=== PATIENT | male | born 1960 | race Caucasian/White ===

== ENCOUNTER 2018-03-05 17:14 | Observation (INO) ==
[2018-03-05] MEDS ORDERED: Sod Chloride 0.9% Inj 1,000 ML IV.SIG ONE (17:44)
--- NOTE | 2018-03-05 18:18 | XR ---
EXAM DATE: 03/05/2018 6:09 PM EDT AGE/SEX: 57 years / Male INDICATIONS: Cough CLINICAL DATA: This is the patient's initial encounter. Patient reports that signs and symptoms have been present for 2 days and indicates a pain score of 0/10. MEDICAL/SURGICAL HISTORY: Hypertension. None. COMPARISON: No prior exams available for comparison. FINDINGS: PA and lateral views of the chest demonstrate the lungs to be symmetrically aerated without evidence of mass, infiltrate or effusion. The cardiomediastinal contours are unremarkable. Osseous structures are intact. CONCLUSION: Negative examination. Electronically signed by: Inocencio Madden MD 03/05/2018 6:17 PM EDT
[2018-03-05 18:29] LABS: Baso % (Auto) 0.1 % (0.0-2.0); Eos # (Auto) 0.1 th/mm3 (0.0-0.4); Eos % (Auto) 0.9 % (0.0-4.0); Hematocrit 45.4 % (39.0-51.0); Hemoglobin 15.3 gm/dL (13.0-17.0); Lymph # (Auto) 1.2 th/mm3 (1.0-4.8); Lymph % (Auto) 10.4 % (9.0-44.0); Mean Corpuscular HGB Conc 33.7 % (32.0-36.0); Mean Corpuscular Hemoglobin 30.4 pg (27.0-34.0); Mean Corpuscular Volume 90.5 fL (80.0-100.0); Mono # (Auto) 0.9 th/mm3 (0.0-0.9); Mono % (Auto) 7.8 % (0.0-8.0); Neut # (Auto) 9.5 th/mm3 (1.8-7.7); Neut % (Auto) 80.8 % (16.0-70.0); Platelet Count 298 th/mm3 (150-450); Red Blood Count 5.02 mil/mm3 (4.50-5.90); Red Cell Distribution Width 13.8 % (11.6-17.2); White Blood Count 11.8 th/mm3 (4.0-11.0)
[2018-03-05 18:51] LABS: INR 1.1 Ratio; Prothrombin Time 11.1 sec (9.8-11.6)
[2018-03-05 18:54] LABS: D-Dimer 0.34 mg/L FEU (0.00-0.50)
[2018-03-05 19:15] LABS: Alanine Aminotransferase 74 U/L (12-78)
[2018-03-05 19:19] LABS: Alkaline Phosphatase 86 U/L (45-117); Total Protein 7.7 g/dL (6.4-8.2)
[2018-03-05 19:31] LABS: Albumin 3.9 g/dL (3.4-5.0); Anion Gap 11 meq/L (5-15); Aspartate Aminotransferase 43 U/L (15-37); Blood Urea Nitrogen 18 mg/dL (7-18); Calcium 9.2 mg/dL (8.5-10.1); Carbon Dioxide 21.8 meq/L (21.0-32.0); Chloride 105 meq/L (98-107); Glomerular Filtration Rate 55 mL/min (>89); Glucose,Random 116 mg/dL (74-106); Potassium 4.3 meq/L (3.5-5.1); Sodium 138 meq/L (136-145)
--- NOTE | 2018-03-05 20:29 | ED ---
HPI General Chief Complaint: Syncope Stated Complaint: Evac/Medical Time Seen by Provider: 03/05/18 17:44 Source: patient Mode of arrival: EMS Limitations: no limitations History of Present Illness HPI narrative: 57-year-old male came to the emergency room with history of syncopal episode. He was brought in by EMS. Patient says that he was not feeling good today as well as last night. He had one episode of diarrhea this morning. He had eaten only one cup of yogurt and after that had been out and about with his fiance in the heat. They picked up something heavy from a pottery place and he unloaded it at home. They had gone to the restaurant to eat something and patient had eaten half of the sandwich when he had to go to the bathroom and had another episode of diarrhea. When he came back he felt extremely weak and passed out. Patient was sitting and laid his head on the table when this happened. His fiance called 911. Patient says that he must have been out for a minute or so. When EMS arrived patient was already awake but he was diaphoretic and blood pressure was 60 systolic. Patient denies any chest pain. On his way he received 1100 cc of IV fluid bolus and blood pressure improved. When he arrived in the ER his initial blood pressure was 135 systolic. Patient was fully awake and oriented. He said he was feeling much better. He has never had syncopal episodes in the past. No history of PE or DVT. No recent hospitalization or prolonged immobilizations. Related Data Home Medications Medication Instructions Recorded Confirmed diclofenac sodium 100 mg PO DAILY 03/05/18 03/05/18 lisinopril 20 mg PO DAILY 03/05/18 03/05/18 verapamil 40 mg PO HS 03/05/18 03/05/18 Allergies Allergy/AdvReac Type Severity Reaction Status Date / Time No Known Allergies Allergy NONE Uncoded 03/05/18 17:27 Review of Systems ROS Unobtainable All other systems reviewed negative except as stated in HPI Neurologic Reports syncope [facility] Medical History Medical History Hypertension (Acute) Rotator cuff tear (Acute) Social History Social History Substance History: No History of Abuse Second Hand Smoke Exposure: No Smoking Status: Never smoker How Often Do You Have a Drink Containing Alcohol: Monthly or less Recent Travel in [facility] within the Last 8 Weeks: No Recent Out of Country Travel within the Last 8 Weeks: No Course Initial Documented Vital Signs Temperature 98.5 F 03/05/18 17:16 Pulse Rate 108 H 03/05/18 17:16 Respiratory Rate 18 03/05/18 17:16 Blood Pressure 114/67 03/05/18 17:16 Pulse Oximetry 100 03/05/18 17:16 Last Documented Vital Signs Temperature 98.1 F 03/07/18 07:25 Pulse Rate 100 H 03/07/18 08:07 Respiratory Rate 16 03/07/18 07:25 Blood Pressure 141/81 H 03/07/18 07:31 Pulse Oximetry 94 L 03/07/18 07:25 Sign Out Sign Out Data: Patient Sign Out occurred on 03/05/18 at 19:40. Patient's care was discussed, and care was transferred from Irvin Livingston to Naa Valdez MD. Sign Out Comment: Awaiting for blood test results. Reassessment. Possibility of going home if everything is within normal limits. Last updated by Irvin Livingston MD at 03/05/18 19:07 Post-Handoff Eval: During the course of the patient's emergency department visit, the patient's history, examination, and differential diagnosis were reviewed with the patient. The patient was placed on a body worker with oximetry and frequent blood pressure monitoring. The patient had IV access obtained and blood work sent for analysis. The patient had a EKG done on arrival that shows a sinus tachycardia rate of 105, QRS duration 94 ms, QTC [address] segment elevation is noted. Nonspecific T-wave abnormalities are noted. The patient was initially provided Normal saline 1 L IV fluid bolus. The patient's laboratory studies are remarkable for a white count of 11.8, hemoglobin 15.3, platelets are 298, neutrophils are 80.8. PT PTT unremarkable, d-dimer is less than 0.5 decreasing likelihood of pulmonary embolism in this patient with no other significant risk factors. CMP is remarkable for an AST of 43, creatinine 1.35, glucose 116, troponin I less than 0.02. Urinalysis shows 30 protein small occult blood few mucus hazy urine, rare bacteria. Given the patient's syncopal event and low blood pressure at the scene, the patient will be admitted to the hospital for continued observation and additional testing, IV fluid resuscitation. The patient's results were discussed with the patient, including the plan of care. I explained that further testing and/ or monitoring is indicated based on the patient's history, examination, and/ or laboratory findings. Therefore, I recommended admission for additional evaluation. The patient expressed understanding and was agreeable with this plan. The patient was admitted to the hospital in stable condition and sent to a bed under the care of the patient's primary care physician, Dr. Zuniga. Medical Decision Making MDM Narrative Medical decision making narrative: Patient was given another liter of IV fluid bolus. Awaiting for blood test result. CT scan of his head was within normal limit. Case has been signed over to the oncoming ER physician Dr. Valdez. Lab Data Result diagrams: 03/06/18 05:59 03/06/18 05:59 Lab Results 03/05/18 03/05/18 03/05/18 Range/Units 18:00 18:00 18:00 WBC 11.8 H (4.0-11.0) th/mm3 RBC 5.02 (4.50-5.90) mil/mm3 Hgb 15.3 (13.0-17.0) gm/dL Hct 45.4 (39.0-51.0) % MCV 90.5 (80.0-100.0) fL MCH 30.4 (27.0-34.0) pg MCHC 33.7 (32.0-36.0) % RDW 13.8 (11.6-17.2) % Plt Count 298 (150-450) th/mm3 MPV 8.0 (7.0-11.0) fL Neut % (Auto) 80.8 H (16.0-70.0) % Lymph % (Auto) 10.4 (9.0-44.0) % Snyder % (Auto) 7.8 (0.0-8.0) % Eos % (Auto) 0.9 (0.0-4.0) % Baso % (Auto) 0.1 (0.0-2.0) % Neut # (Auto) 9.5 H (1.8-7.7) th/mm3 Lymph # (Auto) 1.2 (1.0-4.8) th/mm3 Snyder # (Auto) 0.9 (0.0-0.9) th/mm3 Eos # (Auto) 0.1 (0.0-0.4) th/mm3 Baso # (Auto) 0.0 (0.0-0.2) th/mm3 WBC Differential . Differential Comment Auto diff final PT 11.1 (9.8-11.6) sec INR 1.1 Ratio D-Dimer Quant (PE/DVT) 0.34 (0.00-0.50) mg/L FEU Sodium 138 (136-145) meq/L Potassium 4.3 (3.5-5.1) meq/L Chloride 105 (98-107) meq/L Carbon Dioxide 21.8 (21.0-32.0) meq/L Anion Gap 11 (5-15) meq/L BUN 18 (7-18) mg/dL Creatinine 1.35 H (0.60-1.30) mg/dL Estimated GFR 55 L (>89) mL/min Random Glucose 116 H (74-106) mg/dL Calcium 9.2 (8.5-10.1) mg/dL Total Bilirubin 0.5 (0.2-1.0) mg/dL AST 43 H (15-37) U/L ALT 74 (12-78) U/L Alkaline Phosphatase 86 (45-117) U/L Troponin I Less than 0.02 L (0.02-0.05) ng/mL Total Protein 7.7 (6.4-8.2) g/dL Albumin 3.9 (3.4-5.0) g/dL Lipase (73-393) U/L Urine Color (Yellw/Straw) Urine Clarity (Clear) Urine pH (5.0-8.5) Ur Specific [place] (1.002-1.035) Urine Protein (Neg-Trace) mg/dL Urine Glucose (UA) (Negative) mg/dL Urine Ketones (Negative) mg/dL Urine Occult Blood (Negative) Urine Nitrate (Negative) Urine Bilirubin (Negative) Urine Urobilinogen (Less than 2) mg/dL Ur Leukocyte Esterase (Negative) Urine RBC (0-3) /hpf Urine WBC (0-5) /hpf Urine Bacteria (None) /hpf Hyaline Casts (0-3) /lpf Urine Mucus (Occasional) /lpf Urine Sperm (None) /hpf Stl C.difficile Tox PCR (Negative) St C. diff Tox Epid 027 (Negative) 03/05/18 03/06/18 03/06/18 Range/Units 20:04 01:05 05:59 WBC 5.2 D (4.0-11.0) th/mm3 RBC 4.79 (4.50-5.90) mil/mm3 Hgb 14.3 (13.0-17.0) gm/dL Hct 42.4 (39.0-51.0) % MCV 88.4 (80.0-100.0) fL MCH 29.8 (27.0-34.0) pg MCHC 33.7 (32.0-36.0) % RDW 14.1 (11.6-17.2) % Plt Count 283 (150-450) th/mm3 MPV 7.8 (7.0-11.0) fL Neut % (Auto) 64.6 (16.0-70.0) % Lymph % (Auto) 25.3 (9.0-44.0) % Snyder % (Auto) 8.5 H (0.0-8.0) % Eos % (Auto) 1.3 (0.0-4.0) % Baso % (Auto) 0.3 (0.0-2.0) % Neut # (Auto) 3.3 (1.8-7.7) th/mm3 Lymph # (Auto) 1.3 (1.0-4.8) th/mm3 Snyder # (Auto) 0.4 (0.0-0.9) th/mm3 Eos # (Auto) 0.1 (0.0-0.4) th/mm3 Baso # (Auto) 0.0 (0.0-0.2) th/mm3 WBC Differential . Differential Comment Auto diff final PT (9.8-11.6) sec INR Ratio D-Dimer Quant (PE/DVT) (0.00-0.50) mg/L FEU Sodium (136-145) meq/L Potassium (3.5-5.1) meq/L Chloride (98-107) meq/L Carbon Dioxide (21.0-32.0) meq/L Anion Gap (5-15) meq/L BUN (7-18) mg/dL Creatinine (0.60-1.30) mg/dL Estimated GFR (>89) mL/min Random Glucose (74-106) mg/dL Calcium (8.5-10.1) mg/dL Total Bilirubin (0.2-1.0) mg/dL AST (15-37) U/L ALT (12-78) U/L Alkaline Phosphatase (45-117) U/L Troponin I Less than 0.02 L (0.02-0.05) ng/mL Total Protein (6.4-8.2) g/dL Albumin (3.4-5.0) g/dL Lipase (73-393) U/L Urine Color Yellow (Yellw/Straw) Urine Clarity Hazy H (Clear) Urine pH 5.0 (5.0-8.5) Ur Specific [place] 1.013 (1.002-1.035) Urine Protein 30 H (Neg-Trace) mg/dL Urine Glucose (UA) Negative (Negative) mg/dL Urine Ketones Negative (Negative) mg/dL Urine Occult Blood Small H (Negative) Urine Nitrate Negative (Negative) Urine Bilirubin Negative (Negative) Urine Urobilinogen Less than 2 (Less than 2) mg/dL Ur Leukocyte Esterase Negative (Negative) Urine RBC 1 (0-3) /hpf Urine WBC 4 (0-5) /hpf Urine Bacteria Rare H (None) /hpf Hyaline Casts 19 (0-3) /lpf Urine Mucus Few H (Occasional) /lpf Urine Sperm Rare H (None) /hpf Stl C.difficile Tox PCR (Negative) St C. diff Tox Epid 027 (Negative) 03/06/18 03/06/18 03/06/18 Range/Units 05:59 05:59 10:20 WBC (4.0-11.0) th/mm3 RBC (4.50-5.90) mil/mm3 Hgb (13.0-17.0) gm/dL Hct (39.0-51.0) % MCV (80.0-100.0) fL MCH (27.0-34.0) pg MCHC (32.0-36.0) % RDW (11.6-17.2) % Plt Count (150-450) th/mm3 MPV (7.0-11.0) fL Neut % (Auto) (16.0-70.0) % Lymph % (Auto) (9.0-44.0) % Snyder % (Auto) (0.0-8.0) % Eos % (Auto) (0.0-4.0) % Baso % (Auto) (0.0-2.0) % Neut # (Auto) (1.8-7.7) th/mm3 Lymph # (Auto) (1.0-4.8) th/mm3 Snyder # (Auto) (0.0-0.9) th/mm3 Eos # (Auto) (0.0-0.4) th/mm3 Baso # (Auto) (0.0-0.2) th/mm3 WBC Differential Differential Comment PT (9.8-11.6) sec INR Ratio D-Dimer Quant (PE/DVT) (0.00-0.50) mg/L FEU Sodium 139 (136-145) meq/L Potassium 3.8 (3.5-5.1) meq/L Chloride 106 (98-107) meq/L Carbon Dioxide 23.2 (21.0-32.0) meq/L Anion Gap 10 (5-15) meq/L BUN 16 (7-18) mg/dL Creatinine 0.81 (0.60-1.30) mg/dL Estimated GFR Greater than 89 (>89) mL/min Random Glucose 87 (74-106) mg/dL Calcium 8.7 (8.5-10.1) mg/dL Total Bilirubin 0.5 (0.2-1.0) mg/dL AST 23 (15-37) U/L ALT 59 (12-78) U/L Alkaline Phosphatase 76 (45-117) U/L Troponin I Less than 0.02 L (0.02-0.05) ng/mL Total Protein 7.0 D (6.4-8.2) g/dL Albumin 3.5 (3.4-5.0) g/dL Lipase 211 (73-393) U/L Urine Color (Yellw/Straw) Urine Clarity (Clear) Urine pH (5.0-8.5) Ur Specific [place] (1.002-1.035) Urine Protein (Neg-Trace) mg/dL Urine Glucose (UA) (Negative) mg/dL Urine Ketones (Negative) mg/dL Urine Occult Blood (Negative) Urine Nitrate (Negative) Urine Bilirubin (Negative) Urine Urobilinogen (Less than 2) mg/dL Ur Leukocyte Esterase (Negative) Urine RBC (0-3) /hpf Urine WBC (0-5) /hpf Urine Bacteria (None) /hpf Hyaline Casts (0-3) /lpf Urine Mucus (Occasional) /lpf Urine Sperm (None) /hpf Stl C.difficile Tox PCR Negative (Negative) St C. diff Tox Epid 027 Negative (Negative) Imaging Data Radiologist's impression: ITS Impressions Chest X-Ray 03/05/18 17:44 CONCLUSION: Negative examination. Head CT 03/05/18 17:46 CONCLUSION: 1. Negative CT Head non contrast. Abdomen/Pelvis CT 03/06/18 00:00 CONCLUSION: 1. Mild nonspecific fluid and gaseous distention of bowel throughout. 2. Fat-containing umbilical and left inguinal hernias. 3. No definite acute CT findings. ECG Data EKG Prior to Arrival: Yes Attestation: I personally reviewed and interpreted this ECG as follows: Interpretation: Twelve-lead EKG was reviewed by me. Normal sinus rhythm, normal axis, sinus tachycardia, nonspecific ST-T wave changes. Heart rate of 105 bpm Discharge Plan Discharge Disposition Patient Disposition: 01 Discharge Home Discharge Condition Condition: Good Discharge Order Discharge Orders: Discharge Order (Routine); Ordered 03/07/18 Ordered By: Madai Baron Physicians Team ED Provider: Naa Valdez Primary Care Provider: Lele Zuniga Attending Provider: Arielle Clark Status ED Status: Left Department Discharge Information Discharge Date/Time: 03/06/18 00:02
[2018-03-05 21:10] LABS: Bacteria,Urine Rare /hpf; Bilirubin,Urine Negative (Negative); Clarity,Urine Hazy (Clear); Color,Urine Yellow (Yellw/Straw); Glucose,Urine (UA) Negative (Negative); Hyaline Casts,Urine 19 /lpf (0-3); Leukocyte Esterase,Urine Negative (Negative); Mucus,Urine Few /lpf (Occasional); Nitrite,Urine Negative (Negative); Specific Gravity,Urine 1.013 (1.002-1.035); Sperm,Urine Rare /hpf
[2018-03-05] MEDS ORDERED: Acetaminophen 325 MG Tablet PO PRN (21:57)
[2018-03-05] MEDS ORDERED: Bisacodyl 10 MG Supp RECTAL PRN (21:57)
--- NOTE | 2018-03-05 22:53 | P.HPIM ---
History of Present Illness Primary Care Physician: Lele Zuniga MD History of Present Illness: This is a 57-year-old male with a PMH of HTN who was brought to the ER by EMS after syncopal event. Patient reports that he did not eat or drink much today and had been doing a lot of work outside when he had sudden onset of dizziness and "blacked out". No seizure activity noted, no h/o similar events. EMS noted pt to be hypotensive w/ BP 60's systolic, s/p IVF w/ improvement. Pt denies chest pain, SOB, fever or chills. On arrival, BP 114/67, HR 108, O2 sat 100% RA, Afebrile. WBC 11.8. Creatinine 1.35, no previous labs for comparison. Troponin negative. UA with minimal bacteriuria. CXR with no acute findings. CT Head negative. Patient now states he feels back to baseline , was able to ambulate in the ER without any difficulty or dizziness. - Diagnosis (1) Syncope (2) Renal insufficiency (3) Leukocytosis - Inpatient Certification If this patient has been admitted as an Inpatient: I certify that the inpatient services were ordered in accordance with Medicare regulations governing the order. 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 - Medical History Medical History: Medical History (Last Reviewed 03/05/18 @ 20:28 by Irvin Livingston MD) Hypertension Rotator cuff tear - Travel History Recent Travel Out of the Country Within the Last 8 Weeks: No Medications and Allergies Active Medications: Active Medications Acetaminophen (Tylenol) 650 mg PO Q4H PRN PRN Reason: PAIN/FEVER Al Hydroxide/Mg Hydroxide (Milk Of Magnesia Liq) 30 ml PO Q12H PRN PRN Reason: Mild Constipation Bisacodyl (Dulcolax Supp) 10 mg RECTAL DAILY PRN PRN Reason: SEVERE CONSITIPATION Sodium Chloride (Ns Inj) 1,000 mls @ 100 mls/hr IV.CONT .Q10H VICTORIANO Lactulose (Lactulose Liq) 30 ml PO DAILY PRN PRN Reason: SEVERE CONSITIPATION Metoclopramide HCl (Reglan Inj) 5 mg IV.PUSH Q6HR PRN; Protocol PRN Reason: NAUSEA OR VOMITING Senna/Docusate Sodium (Evette-Colace) 1 tab PO BID [facility] Sennosides (Senokot) 17.2 mg PO Q12H PRN PRN Reason: Moderate Constipation Allergies Allergy/AdvReac Type Severity Reaction Status Date / Time No Known Allergies Allergy NONE Uncoded 03/05/18 17:27 Home Medications Medication Instructions Recorded Confirmed Type diclofenac sodium 100 mg PO DAILY 03/05/18 03/05/18 History lisinopril 20 mg PO DAILY 03/05/18 03/05/18 History verapamil 40 mg PO HS 03/05/18 03/05/18 History Exam Vital signs: Vital Signs 03/05/18 17:16 03/05/18 19:23 Temperature 98.5 F Pulse Rate 108 H 97 H Respiratory Rate 18 18 Blood Pressure 114/67 117/72 Pulse Oximetry 100 97 Intake & Output 03/05/18 03/05/18 03/06/18 06:59 18:59 06:59 Intake Total 1000 / 1000 Balance 1000 / 1000 Weight 102.512 kg Intake: IV 1000 / 1000 Narrative: PE: GENERAL: Very pleasant middle-aged male in no acute distress. HEENT: PERRLA, EOMI. No scleral icterus or conjunctival pallor. No lid lag or facial droop. CARDIOVASCULAR: Regular rate and rhythm. No obvious murmurs to auscultation. No chest tenderness to palpation. RESPIRATORY: No obvious rhonchi or wheezing. Clear to auscultation. Breath sounds equal bilaterally. GASTROINTESTINAL: Abdomen soft, non-tender, nondistended. BS normal. MUSCULOSKELETAL: Extremities without clubbing, cyanosis, or edema. No obvious deformities. NEUROLOGICAL: Awake, alert and oriented x4. No focal neurologic deficits. Moving both upper and lower extremities spontaneously. Results - Labs CBC & Chem 7: 03/05/18 18:00 03/05/18 18:00 Labs: Short CBC 03/05/18 Range/Units 18:00 WBC 11.8 H (4.0-11.0) th/mm3 Hgb 15.3 (13.0-17.0) gm/dL Hct 45.4 (39.0-51.0) % Plt Count 298 (150-450) th/mm3 BMP 03/05/18 18:00 Sodium 138 Potassium 4.3 Chloride 105 Carbon Dioxide 21.8 BUN 18 Creatinine 1.35 H Calcium 9.2 Cardiac Enzymes 03/05/18 Range/Units 18:00 Troponin I Less than 0.02 L (0.02-0.05) ng/mL Liver Function 03/05/18 Range/Units 18:00 Total Bilirubin 0.5 (0.2-1.0) mg/dL AST 43 H (15-37) U/L ALT 74 (12-78) U/L Alkaline Phosphatase 86 (45-117) U/L Albumin 3.9 (3.4-5.0) g/dL Urine 03/05/18 Range/Units 20:04 Urine Color Yellow (Yellw/Straw) Urine Clarity Hazy H (Clear) Urine pH 5.0 (5.0-8.5) Ur Specific [place] 1.013 (1.002-1.035) Urine Protein 30 H (Neg-Trace) mg/dL Urine Glucose (UA) Negative (Negative) mg/dL - Imaging Impressions Chest X-Ray 03/05/18 17:44 CONCLUSION: Negative examination. Head CT 03/05/18 17:46 CONCLUSION: 1. Negative CT Head non contrast. Caprini VTE Risk Assessment Caprini VTE Risk Assessment: No/Low Risk (score <= 1) Caprini Risk Assessment Model: Point Value = 1 Point Value = 2 Point Value = 3 Point Value = 5 Age 41-60 Minor surgery BMI > 25 kg/m2 Swollen legs Varicose veins or History of unexplained or recurrent spontaneous Oral contraceptives or hormone replacement Sepsis (< 1 month) Serious lung disease, including pneumonia (< 1 month) Abnormal pulmonary function Acute myocardial infarction Congestive heart failure (< 1 month) History of inflammatory bowel disease Medical patient at bed rest Age 61-74 Arthroscopic surgery Major open surgery (> 45 min) Laparoscopic surgery (> 45 min) Malignancy Confined to bed (> 72 hours) Immobilizing plaster cast Central venous access Age >= 75 History of VTE Family history of VTE Factor V Leiden Prothrombin [id number] Lupus anticoagulant Anticardiolipin antibodies Elevated serum homocysteine Heparin-induced thrombocytopenia Other congenital or acquired thrombophilia Stroke (< 1 month) Elective arthroplasty Hip, pelvis, or leg fracture Acute spinal cord injury (< 1 month) Prophylaxis Regimen: Total Risk Factor Score Risk Level Prophylaxis Regimen 0-1 Low Early ambulation 2 Moderate Order ONE of the following: *Sequential Compression Device (SCD) *Heparin 5000 units SQ BID 3-4 Higher Order ONE of the following medications: *Heparin 5000 units SQ TID *Enoxaparin/Lovenox 40 mg SQ daily (WT < 150 kg, CrCl > 30 mL/min) *Enoxaparin/Lovenox 30 mg SQ daily (WT < 150 kg, CrCl > 10-29 mL/min) *Enoxaparin/Lovenox 30 mg SQ BID (WT < 150 kg, CrCl > 30 mL/min) AND/OR *Sequential Compression Device (SCD) 5 or more Highest Order ONE of the following medications: *Heparin 5000 units SQ TID (Preferred with Epidurals) *Enoxaparin/Lovenox 40 mg SQ daily (WT < 150 kg, CrCl > 30 mL/min) *Enoxaparin/Lovenox 30 mg SQ daily (WT < 150 kg, CrCl > 10-29 mL/min) *Enoxaparin/Lovenox 30 mg SQ BID (WT < 150 kg, CrCl > 30 mL/min) AND *Sequential Compression Device (SCD) Assessment and Plan - Assessment (1) Syncope Code(s): R55 - Syncope and collapse Status: Acute (2) Renal insufficiency Code(s): N28.9 - Disorder of kidney and ureter, unspecified Status: Acute (3) Leukocytosis Code(s): D72.829 - Elevated white blood cell count, unspecified Status: Acute - Plan A/P: 1. Syncope: Likely secondary to dehydration, decreased PO intake today, EMS noted BP 60's systolic, now resolved after IVF. Telemetry, monitor vital signs , IVF for hydration. Initial trop negative, check serial cardiac enzymes to eval for underlying ischemia. Check Echo to eval for valvular abnormality/ cardiomyopathy. CT Head w/ no acute findings, images reviewed. 2. Renal Insufficiency: likely due to dehydration as well, Creatinine 1.35, no previous labs for comparison, presumably new. IVF for hydration, repeat labs in am. 3. Leukocytosis: WBC 11, afebrile, CXR w/ no acute findings, images reviewed by me. U/a negative for UTI. Likely reactive, repeat labs in am. 4. DVT Prophylaxis: SCD/Teds 5. Social work for d/c planning as needed. 6. Case discussed w/ ER physician at length, labs/records/imaging reviewed by me.
[2018-03-06] MEDS: Sod Chloride 0.9% Inj 1,000 ML IV.CONT SCH ×3 (01:04→23:31)
[2018-03-06] MEDS ORDERED: Aluminum/Magnesium/Simethacone Susp 30 ML UDC PO ONE (06:21)
[2018-03-06 07:37] LABS: Baso % (Auto) 0.3 % (0.0-2.0); Eos # (Auto) 0.1 th/mm3 (0.0-0.4); Eos % (Auto) 1.3 % (0.0-4.0); Hematocrit 42.4 % (39.0-51.0); Hemoglobin 14.3 gm/dL (13.0-17.0); Lymph # (Auto) 1.3 th/mm3 (1.0-4.8); Lymph % (Auto) 25.3 % (9.0-44.0); Mean Corpuscular HGB Conc 33.7 % (32.0-36.0); Mean Corpuscular Hemoglobin 29.8 pg (27.0-34.0); Mean Corpuscular Volume 88.4 fL (80.0-100.0); Mean Platelet Volume 7.8 fL (7.0-11.0); Mono # (Auto) 0.4 th/mm3 (0.0-0.9); Mono % (Auto) 8.5 % (0.0-8.0); Neut # (Auto) 3.3 th/mm3 (1.8-7.7); Neut % (Auto) 64.6 % (16.0-70.0); Platelet Count 283 th/mm3 (150-450); Red Blood Count 4.79 mil/mm3 (4.50-5.90); Red Cell Distribution Width 14.1 % (11.6-17.2); White Blood Count 5.2 th/mm3 (4.0-11.0)
[2018-03-06 08:00] LABS: Albumin 3.5 g/dL (3.4-5.0); Anion Gap 10 meq/L (5-15); Aspartate Aminotransferase 23 U/L (15-37); Blood Urea Nitrogen 16 mg/dL (7-18); Calcium 8.7 mg/dL (8.5-10.1); Carbon Dioxide 23.2 meq/L (21.0-32.0); Chloride 106 meq/L (98-107); Glomerular Filtration Rate Greater Than 89 mL/min (>89); Glucose,Random 87 mg/dL (74-106); Potassium 3.8 meq/L (3.5-5.1); Sodium 139 meq/L (136-145)
[2018-03-06 08:01] LABS: Alanine Aminotransferase 59 U/L (12-78)
[2018-03-06 08:04] LABS: Alkaline Phosphatase 76 U/L (45-117)
--- NOTE | 2018-03-06 10:12 | P.PN ---
Subjective Interval history: Follow up for syncope. Patient denies any lightheadedness or dizziness today, however started having multiple episodes of nonbloody diarrhea overnight. He states he has had about 67 bowel movements. He also reports diffuse abdominal cramping across bilateral lower quadrants. Reports nausea and some dry heaving , but no vomiting. Denies fevers or chills. He states he is 8 out at multiple restaurants, most recently ill house, and he feels he may have food poisoning. He has not been able to tolerate oral intake. He denies any other medical complaints at this time, including no chest pain, palpitations, shortness of breath, or urinary complaints. Physical Exam Vital signs: Vital Signs 03/05/18 17:16 03/05/18 19:23 03/05/18 23:37 Temperature 98.5 F Pulse Rate 108 H 97 H 98 H Respiratory Rate 18 18 17 Blood Pressure 114/67 117/72 122/72 Pulse Oximetry 100 97 03/06/18 00:40 03/06/18 03:21 03/06/18 06:00 Temperature 97.9 F 100.0 F H 98.2 F Pulse Rate 97 H 85 Respiratory Rate 16 17 Blood Pressure 113/61 115/74 Pulse Oximetry 92 L 94 L 03/06/18 07:53 03/06/18 08:12 Temperature 98.6 F Pulse Rate 105 H 108 H Respiratory Rate 16 Blood Pressure 132/85 Pulse Oximetry Intake & Output 03/05/18 03/06/18 03/06/18 18:59 06:59 18:59 Intake Total 1720 / 1720 Balance 1720 / 1720 Weight 102.512 kg Intake: IV 1000 / 1000 Oral 720 / 720 Other: # Voids 1 Date of Last Bowel Movement 03/06/18 # Bowel Movements 1 Narrative: GENERAL: Well-nourished, well-developed middle-age male patient in [facility]. SKIN: Warm and dry. No rash. HEENT: Normocephalic. Atraumatic. Pupils equal and round. Mucous membranes pink and moist. NECK: Supple. Trachea midline. CARDIOVASCULAR: Regular rate and rhythm. No murmur appreciated. RESPIRATORY: No accessory muscle use. Clear to auscultation. Breath sounds equal bilaterally. GASTROINTESTINAL: Abdomen soft, nondistended, mild diffuse lower abdominal tenderness to palpation. Normoactive bowel sounds x4. MUSCULOSKELETAL: No obvious deformities. Extremities without clubbing, cyanosis , or edema. NEUROLOGICAL: Awake and alert. No obvious cranial nerve deficits. Motor grossly within normal limits. Moving all extremities spontaneously. Normal speech. PSYCHIATRIC: Appropriate mood and affect; insight and judgment normal. Results - Labs CBC & Chem 7: 03/06/18 05:59 03/06/18 05:59 Laboratory Results - last 24 hr 03/05/18 03/05/18 03/05/18 18:00 18:00 18:00 WBC 11.8 H RBC 5.02 Hgb 15.3 Hct 45.4 MCV 90.5 MCH 30.4 MCHC 33.7 RDW 13.8 Plt Count 298 MPV 8.0 Neut % (Auto) 80.8 H Lymph % (Auto) 10.4 [place] % (Auto) 7.8 Eos % (Auto) 0.9 Baso % (Auto) 0.1 Neut # (Auto) 9.5 H Lymph # (Auto) 1.2 [place] # (Auto) 0.9 Eos # (Auto) 0.1 Baso # (Auto) 0.0 WBC Differential . Differential Comment Auto diff final PT 11.1 INR 1.1 D-Dimer Quant (PE/DVT) 0.34 Sodium 138 Potassium 4.3 Chloride 105 Carbon Dioxide 21.8 Anion Gap 11 BUN 18 Creatinine 1.35 H Estimated GFR 55 L Random Glucose 116 H Calcium 9.2 Total Bilirubin 0.5 AST 43 H ALT 74 Alkaline Phosphatase 86 Troponin I Less than 0.02 L Total Protein 7.7 Albumin 3.9 Urine Color Urine Clarity Urine pH Ur Specific [place] Urine Protein Urine Glucose (UA) Urine Ketones Urine Occult Blood Urine Nitrate Urine Bilirubin Urine Urobilinogen Ur Leukocyte Esterase Urine RBC Urine WBC Urine Bacteria Hyaline Casts Urine Mucus Urine Sperm 03/05/18 03/06/18 03/06/18 20:04 01:05 05:59 WBC 5.2 D RBC 4.79 Hgb 14.3 Hct 42.4 MCV 88.4 MCH 29.8 MCHC 33.7 RDW 14.1 Plt Count 283 MPV 7.8 Neut % (Auto) 64.6 Lymph % (Auto) 25.3 [place] % (Auto) 8.5 H Eos % (Auto) 1.3 Baso % (Auto) 0.3 Neut # (Auto) 3.3 Lymph # (Auto) 1.3 [place] # (Auto) 0.4 Eos # (Auto) 0.1 Baso # (Auto) 0.0 WBC Differential . Differential Comment Auto diff final PT INR D-Dimer Quant (PE/DVT) Sodium Potassium Chloride Carbon Dioxide Anion Gap BUN Creatinine Estimated GFR Random Glucose Calcium Total Bilirubin AST ALT Alkaline Phosphatase Troponin I Less than 0.02 L Total Protein Albumin Urine Color Yellow Urine Clarity Hazy H Urine pH 5.0 Ur Specific [place] 1.013 Urine Protein 30 H Urine Glucose (UA) Negative Urine Ketones Negative Urine Occult Blood Small H Urine Nitrate Negative Urine Bilirubin Negative Urine Urobilinogen Less than 2 Ur Leukocyte Esterase Negative Urine RBC 1 Urine WBC 4 Urine Bacteria Rare H Hyaline Casts 19 Urine Mucus Few H Urine Sperm Rare H 03/06/18 05:59 WBC RBC Hgb Hct MCV MCH MCHC RDW Plt Count MPV Neut % (Auto) Lymph % (Auto) [place] % (Auto) Eos % (Auto) Baso % (Auto) Neut # (Auto) Lymph # (Auto) [place] # (Auto) Eos # (Auto) Baso # (Auto) WBC Differential Differential Comment PT INR D-Dimer Quant (PE/DVT) Sodium 139 Potassium 3.8 Chloride 106 Carbon Dioxide 23.2 Anion Gap 10 BUN 16 Creatinine 0.81 Estimated GFR Greater than 89 Random Glucose 87 Calcium 8.7 Total Bilirubin 0.5 AST 23 ALT 59 Alkaline Phosphatase 76 Troponin I Less than 0.02 L Total Protein 7.0 D Albumin 3.5 Urine Color Urine Clarity Urine pH Ur Specific [place] Urine Protein Urine Glucose (UA) Urine Ketones Urine Occult Blood Urine Nitrate Urine Bilirubin Urine Urobilinogen Ur Leukocyte Esterase Urine RBC Urine WBC Urine Bacteria Hyaline Casts Urine Mucus Urine Sperm - Imaging Impressions Chest X-Ray 03/05/18 17:44 CONCLUSION: Negative examination. Head CT 03/05/18 17:46 CONCLUSION: 1. Negative CT Head non contrast. Assessment and Plan - Assessment (1) Syncope Code(s): R55 - Syncope and collapse Status: Acute (2) Renal insufficiency Code(s): N28.9 - Disorder of kidney and ureter, unspecified Status: Acute (3) Leukocytosis Code(s): D72.829 - Elevated white blood cell count, unspecified Status: Acute - Plan 57-year-old male with history of hypertension, presents after syncopal event Syncope: Likely secondary to dehydration, decreased PO intake today, EMS noted BP 60's systolic, now resolved after IVF. -CT Head w/ no acute findings, images reviewed. -Monitor on telemetry -Check orthostatic vital signs -ACS ruled out with negative serial cardiac enzymes 3 and EKG without acute ischemic changes -Continue IVF for hydration. -Check Echo to eval for valvular abnormality/cardiomyopathy, results pending. -Symptoms improved Abdominal Pain/Diarrhea/Nausea: Suspect gastroenteritis -Check abdominal CT -Check stool studies -LFTs within normal limits, check lipase -Supportive treatment with IVF hydration, antiemetics, and pain control as needed BILLY: likely due to dehydration. Creatinine 1.35, no previous labs for comparison, presumably new. -Give IVF for hydration -Avoid nephrotoxins -repeat labs show improvement with Cr 0.81 Leukocytosis: WBC 11.8K, afebrile, CXR w/ no acute findings, images reviewed by me. U/a negative for UTI. -Suspect secondary to gastroenteritis vs reactive -Given IVF hydratin -Repeat labs show improvement with WBC 5.2K, resolved. Hypertension: with hypotension prior to arrival -holding patient's lisinopril -monitor BP, add antihypertensives as needed DVT Prophylaxis: SCD/Teds Discharge Planning: Discharge pending CT abd, echo results, and if tolerating oral intake. Progress Note: Quality - VTE Deep Vein Thrombosis/Pulmonary Embolism Present on Admission: No
--- NOTE | 2018-03-06 10:39 | ECG ---
Date Performed: 03/05/2018 Time Performed: 17:18:21 PTAGE: 57 years EKG: SINUS TACHYCARDIA NONSPECIFIC T-WAVE ABNORMALITY ABNORMAL RHYTHM ECG Compared to PREVIOUS TRACING nonspecific T wave changes are now present PREVIOUS TRACIN03/20/2015 10.29 DOCTOR: Geoff Irby Interpretating Date/Time 03/06/2018 10:36:43
[2018-03-06] MEDS ORDERED: Morphine Inj 4 MG/ML Vial IV.PUSH ONE (10:56)
[2018-03-06] MEDS: Senna/Docusate Sodium 8.6/50 MG Tablet PO SCH ×2 (11:32→23:09)
[2018-03-06] MEDS ORDERED: Diatrizoate Meglum/Diatrizoate Sod Liq 9 ML UDC PO ONE ×2 (13:44→14:26)
--- NOTE | 2018-03-06 14:47 | ECHRPT ---
Indication: CARDIOMYOPATHY CONCLUSIONS Normal left ventricular size. Mild concentric left ventricular hypertrophy. The left ventricular systolic function is hyperdynamic with an estimated ejection fraction in the ra nge of 65- 70%. No atrial level shunt is demonstrated by color flow Doppler interrogation. The aortic root and proximal ascending aorta are not well visualized. There is mild tricuspid valve regurgitation. The estimated pulmonary arterial pressure is 30.6 mmHg. The inferior vena cava was not well visualized. A prominent epicardial fat pad is present. BP: / HR: Rhythm: Sinus MEASUREMENTS (Male / Female) Normal Values Technical Quality:Fair 2D ECHO LV Diastolic Diameter PLAX 3.9 cm 4.2 - 5.9 / 3.9 - 5.3 cm LV Systolic Diameter PLAX 3.0 cm IVS Diastolic Thickness 1.2 cm 0.6 - 1.0 / 0.6 - 0.9 cm LVPW Diastolic Thickness 1.2 cm 0.6 - 1.0 / 0.6 - 0.9 cm LV Relative Wall Thickness 0.6 RV Internal Dim ED PLAX 2.6 cm LVOT Diameter 2.2 cm Aortic Root Diameter 3.8 cm LA Systolic Diameter LX 3.3 cm 3.0 - 4.0 / 2.7 - 3.8 cm M-MODE AV Cusp Separation MM 1.8 cm DOPPLER AV Peak Velocity 108.0 cm/s AV Peak Gradient 4.7 mmHg AV Mean Gradient 3.0 mmHg AV Velocity Time Integral 15.5 cm LVOT Peak Velocity 81.2 cm/s LVOT Peak Gradient 2.6 mmHg LVOT Velocity Time Integral 13.6 cm AV Area Cont Eq vti 3.3 cm AV Area Cont Eq pk 2.9 cm Mitral E Point Velocity 60.2 cm/s Mitral A Point Velocity 97.7 cm/s Mitral E to A Ratio 0.6 TR Peak Velocity 227.0 cm/s TR Peak Gradient 20.6 mmHg Right Atrial Pressure 10.0 mmHg Pulmonary Artery Systolic Pressu 30.6 mmHg Right Ventricular Systolic Press 30.6 mmHg PV Peak Velocity 81.2 cm/s PV Peak Gradient 2.6 mmHg FINDINGS LEFT VENTRICLE Normal left ventricular size. Mild concentric left ventricular hypertrophy. The left ventricular systolic function is hyperdynamic with an estimated ejection fraction in the ra nge of 65- 70%. RIGHT VENTRICLE Normal right ventricular size and systolic function. LEFT ATRIUM The left atrial size is normal. RIGHT ATRIUM The right atrial size is normal. ATRIAL SEPTUM No atrial level shunt is demonstrated by color flow Doppler interrogation. AORTA The aortic root and proximal ascending aorta are not well visualized. MITRAL VALVE Structurally normal mitral valve. No mitral valve stenosis or regurgitation. AORTIC VALVE Trileaflet aortic valve. No aortic valve stenosis or regurgitation. TRICUSPID VALVE There is mild tricuspid valve regurgitation. The estimated pulmonary arterial pressure is 30.6 mmHg. PULMONARY VALVE No pulmonary valve regurgitation or stenosis. VESSELS The inferior vena cava was not well visualized. PERICARDIUM A prominent epicardial fat pad is present. Reji Whiting MD, FACC (Electronically Signed) Final Date:06 March 2018 14:46
--- NOTE | 2018-03-07 09:36 | P.PNIM ---
Subjective Interval history: Follow-up visit syncope, diarrhea, hypotension. Patient seen and examined today. Reports he is doing well. Denies any diarrhea, headaches, dizziness. States he is feeling fine and better. Denies pain and discomfort. Denies SOB/ dyspnea. Denies chest pain, palpitations. Denies fevers, chills, n/v/d. Denies dysuria. Discussed with patient results of labs and diagnostic studies. Encourage p.o. fluid hydration. Follow-up with PCP and outpatient. Patient requesting to go home today. Physical Exam Vital signs: Vital Signs 03/06/18 11:55 03/06/18 12:10 03/06/18 16:00 Temperature 98.3 F Pulse Rate 114 H 114 H 114 H Respiratory Rate 18 Blood Pressure 134/86 Pulse Oximetry 95 03/06/18 20:15 03/06/18 23:51 03/07/18 03:52 Temperature 98.2 F 97.7 F 98.5 F Pulse Rate 115 H 100 H 99 H Respiratory Rate 18 16 16 Blood Pressure 119/73 133/84 123/65 Pulse Oximetry 94 L 95 94 L 03/07/18 07:25 03/07/18 07:29 03/07/18 07:31 Temperature 98.1 F Pulse Rate 97 H Respiratory Rate 16 Blood Pressure 140/91 H 133/95 H 141/81 H Pulse Oximetry 94 L 03/07/18 08:07 Temperature Pulse Rate 100 H Respiratory Rate Blood Pressure Pulse Oximetry Intake & Output 03/06/18 03/07/18 03/07/18 18:59 06:59 18:59 Intake Total 1000 / 1000 1300 / 1300 Output Total 600 / 600 Balance 1000 / 1000 700 / 700 Intake: IV 1000 / 1000 1000 / 1000 NS Inj 1,000 ML @ 100 mls/hr IV 1000 / 1000 1000 / 1000 .CONT .Q10H VICTORIANO Rx#:[id number] Other 300 / 300 Output: Urine 600 / 600 Other: Other Intake Source Saline Solution Narrative: GENERAL: This is a well-nourished, well-developed patient, in no apparent distress. SKIN: Warm and dry HEENT: Normocephalic. Pupils equal round and reactive. Nose without bleeding. Airway patent. NECK: Trachea midline. No JVD. Supple. CARDIOVASCULAR: Regular rate and rhythm without murmurs, gallops, or rubs. RESPIRATORY: Clear to auscultation. Breath sounds equal bilaterally. No wheezes , rales, or rhonchi. GASTROINTESTINAL: Abdomen soft, non-tender, nondistended. Bowel Sounds normoactive x4. MUSCULOSKELETAL: Extremities without clubbing, cyanosis, or edema. NEUROLOGICAL: Awake and alert. Oriented to time, place, person. No focal neuro deficit. Moves all extremities. Normal speech. Results - Labs CBC & Chem 7: 03/06/18 05:59 03/06/18 05:59 Laboratory Results - last 24 hr 03/06/18 03/06/18 05:59 10:20 Lipase 211 Stl C.difficile Tox PCR Negative St C. diff Tox Epid 027 Negative Microbiology 03/06/18 10:20 Stool Enteric Pathogens (PCR) - Final No enteric pathogens detected by PCR (No Salmonella sp., Shigella sp., Campylobacter sp., Yersinia enterocolitica, Vibrio sp., Norovirus, or EHEC (Shiga Toxin 1 or Shiga Toxin 2) detected. 03/06/18 10:20 Stool Cryptosporidium Antigen - Final Negative - No Cryptosporicium antigen detected In selected cases of patients with a history of immunosuppression or foreign travel, a full ova and parasites examination may be desired. Contact the microbiology lab if full workup is indicated and subit another specimen for testing. 03/06/18 10:20 Stool Giardia Antigen (KIMMIE) - Final Negative - No Giardia Antigen detected In selected cases of patients with a history of immunosuppression or foreign travel, a full ova and parasites examination may be desired. Contact the microbiology lab if full workup is indicated and subit another specimen for testing. - Imaging Impressions Abdomen/Pelvis CT 03/06/18 00:00 CONCLUSION: 1. Mild nonspecific fluid and gaseous distention of bowel throughout. 2. Fat-containing umbilical and left inguinal hernias. 3. No definite acute CT findings. - Procedures None Assessment and Plan - Assessment (1) Syncope Code(s): R55 - Syncope and collapse Status: Acute (2) Renal insufficiency Code(s): N28.9 - Disorder of kidney and ureter, unspecified Status: Acute (3) Leukocytosis Code(s): D72.829 - Elevated white blood cell count, unspecified Status: Acute - Plan 57-year-old male with history of hypertension, presents after syncopal event Syncope: Likely secondary to dehydration, decreased PO intake today, EMS noted BP 60's systolic, now resolved after IVF. -CT Head w/ no acute findings, images reviewed. -Monitor on telemetry -Check orthostatic vital signs -ACS ruled out with negative serial cardiac enzymes 3 and EKG without acute ischemic changes -IVF for hydration provide -Echo 65-70% -Symptoms improved. Encourage p.o. fluid hydration when DC. Abdominal Pain/Diarrhea/Nausea: Suspect gastroenteritis -Abdominal CT umbilical and left inguinal hernia, negative study -Stool studies negative -LFTs within normal limits, lipase 211 BILLY: likely due to dehydration. Creatinine 1.35, no previous labs for comparison, presumably new. -Give IVF for hydration -Avoid nephrotoxins -repeat labs show improvement with Cr 0.81 -May resume home medication lisinopril Leukocytosis: WBC 11.8K, afebrile, CXR w/ no acute findings, images reviewed by me. U/a negative for UTI. -Suspect secondary to gastroenteritis vs reactive -Repeat labs show improvement with WBC 5.2K, resolved. Hypertension: with hypotension prior to arrival -Resume home medications verapamil and lisinopril on DC BILLY has resolved. DVT Prophylaxis: SCD/Teds Code Status: Full Code Discussed Condition With: Patient, nurse Discharge Planning: Plan to DC home today
--- NOTE | 2018-03-07 09:51 | P.DS ---
Date of admission: 03/05/18 22:49 Primary care physician: Lele Zuniga MD Attending physician on discharge: Arielle Clark Anticipated date of discharge: 03/07/18 Brief History from admission: This is a 57-year-old male with a PMH of HTN who was brought to the ER by EMS after syncopal event. Patient reports that he did not eat or drink much today and had been doing a lot of work outside when he had sudden onset of dizziness and "blacked out". No seizure activity noted, no h/o similar events. EMS noted pt to be hypotensive w/ BP 60's systolic, s/p IVF w/ improvement. Pt denies chest pain, SOB, fever or chills. On arrival, BP 114/67, HR 108, O2 sat 100% RA, Afebrile. WBC 11.8. Creatinine 1.35, no previous labs for comparison. Troponin negative. UA with minimal bacteriuria. CXR with no acute findings. CT Head negative. Patient now states he feels back to baseline , was able to ambulate in the ER without any difficulty or dizziness. DS: Diagnosis - Discharge Diagnosis (1) Syncope Status: Acute (2) Renal insufficiency Status: Acute (3) Leukocytosis Status: Acute DS: Summary Hospital Course: 57-year-old male with a PMH of HTN who was brought to the ER by EMS after syncopal event. Per review of records, patient reports that he did not eat or drink much today and had been doing a lot of work outside when he had sudden onset of dizziness and "blacked out". He initially was hypotensive. Elevated BUN and creatinine. Patient was treated with IV fluids and significantly improve his blood pressure and labs. Episodes of diarrhea while in the hospital. Abdominal CT done was negative for any acute issues. Echocardiogram showed 65-70% EF. His head CT was negative. His stool was tested and was negative for Cryptosporidium, Giardia, and enteric pathogen. Patient reports significant improvement in his condition. Patient has met maximal benefits of hospitalization. Clinically stable for discharge. Follow-up with PCP in the outpatient. Encourage p.o. fluid hydration. - Time Spent with Patient Total time spent providing and/or coordinating discharge services: Less than 30 minutes - Quality: VTE Deep Vein Thrombosis/Pulmonary Embolism Present on Admission: No Exam Vital signs: Vital Signs 03/06/18 11:55 03/06/18 12:10 03/06/18 16:00 Temperature 98.3 F Pulse Rate 114 H 114 H 114 H Respiratory Rate 18 Blood Pressure 134/86 Pulse Oximetry 95 03/06/18 20:15 03/06/18 23:51 03/07/18 03:52 Temperature 98.2 F 97.7 F 98.5 F Pulse Rate 115 H 100 H 99 H Respiratory Rate 18 16 16 Blood Pressure 119/73 133/84 123/65 Pulse Oximetry 94 L 95 94 L 03/07/18 07:25 03/07/18 07:29 03/07/18 07:31 Temperature 98.1 F Pulse Rate 97 H Respiratory Rate 16 Blood Pressure 140/91 H 133/95 H 141/81 H Pulse Oximetry 94 L 03/07/18 08:07 Temperature Pulse Rate 100 H Respiratory Rate Blood Pressure Pulse Oximetry Intake & Output 03/06/18 03/07/18 03/07/18 18:59 06:59 18:59 Intake Total 1000 / 1000 1300 / 1300 Output Total 600 / 600 Balance 1000 / 1000 700 / 700 Intake: IV 1000 / 1000 1000 / 1000 NS Inj 1,000 ML @ 100 mls/hr IV 1000 / 1000 1000 / 1000 .CONT .Q10H VICTORIANO Rx#:[id number] Other 300 / 300 Output: Urine 600 / 600 Other: Other Intake Source Saline Solution Narrative: GENERAL: This is a well-nourished, well-developed patient, in no apparent distress. SKIN: Warm and dry HEENT: Normocephalic. Pupils equal round and reactive. Nose without bleeding. Airway patent. NECK: Trachea midline. No JVD. Supple. CARDIOVASCULAR: Regular rate and rhythm without murmurs, gallops, or rubs. RESPIRATORY: Clear to auscultation. Breath sounds equal bilaterally. No wheezes , rales, or rhonchi. GASTROINTESTINAL: Abdomen soft, non-tender, nondistended. Bowel Sounds normoactive x4. MUSCULOSKELETAL: Extremities without clubbing, cyanosis, or edema. NEUROLOGICAL: Awake and alert. Oriented to time, place, person. No focal neuro deficit. Moves all extremities. Normal speech. Results Procedures completed during hospitalization: None Labs on day of discharge: Labs from last 24 hours 03/06/18 03/06/18 10:20 05:59 Lipase 211 Stl C.difficile Tox PCR Negative St C. diff Tox Epid 027 Negative - Impressions ITS Impressions Chest X-Ray 03/05/18 17:44 CONCLUSION: Negative examination. Head CT 03/05/18 17:46 CONCLUSION: 1. Negative CT Head non contrast. Abdomen/Pelvis CT 03/06/18 00:00 CONCLUSION: 1. Mild nonspecific fluid and gaseous distention of bowel throughout. 2. Fat-containing umbilical and left inguinal hernias. 3. No definite acute CT findings. Discharge Plan - Discharge Disposition Patient Disposition: 01 Discharge Home - Discharge Condition Condition: Good - Discharge Order Discharge Orders: Discharge Order (Routine); Ordered 03/07/18 Ordered By: Madai Baron - Physicians Team Primary Care Provider: Lele Zuniga Attending Provider: Arielle Clark
== END 2018-03-07 10:01 | disposition home or self-care (01) ==
LOC: NEPE 17:14 → NEDA 17:14 → NEPGCP 17:14 → NEDA 03-06 00:02
PROVIDERS: ADMIT Hospitalist; ATTEND Hospitalist